=== PATIENT | female | born 1945 ===

== ENCOUNTER 2018-02-21 07:57 | Outpatient (CLI) | payer OTHER | END 2018-02-21 08:06 | disposition home or self-care (01) | LOC: SONOGRAMA 07:57 | DX: E04.2 Nontoxic multinodular goiter (principal) ==

== ENCOUNTER 2022-02-18 08:06 | Outpatient (CLI) | payer OTHER | END 2022-02-18 08:08 | disposition home or self-care (01) | LOC: SONOGRAMA 08:06 | PROVIDERS: ATTEND Pathology Anatomic Pathology & Clinical Pathology | DX: E04.2 Nontoxic multinodular goiter (principal) ==

== ENCOUNTER 2023-06-13 07:45 | Outpatient (CLI) | payer OTHER | END 2023-06-13 07:47 | disposition home or self-care (01) | LOC: SONOGRAMA 07:45 | PROVIDERS: ATTEND Pathology Anatomic Pathology | DX: D34 Benign neoplasm of thyroid gland (principal); E07.89 Other specified disorders of thyroid; E04.2 Nontoxic multinodular goiter ==